=== PATIENT | female | born 1960 | race Caucasian/White ===

== ENCOUNTER 2020-04-09 10:53 | Day surgery (SDC) | payer MEDICAID ==
[~2020-04-09] VITALS: Ht 160 cm; Wt 78.2 kg
[~2020-04-09 10:53] MED LIST: HYDR-1475 PO; METO50 PO; SERT50TA12 PO; SODIUM CHLORIDE 0.9% 1,000 ML IV ONE; SODIUM CHLORIDE 0.9% 1,000 ML ONE
[2020-04-09] MEDS ORDERED: PROPOFOL 1% 20 ML VIAL IVP ONE (12:00)
[2020-04-09] MEDS ORDERED: LIDOCAINE/PF 2% 5 ML VIAL INJ ONE (12:00)
== END 2020-04-09 13:40 | disposition home or self-care (01) ==
LOC: SURGERY 10:53
PROVIDERS: ATTEND Student in an Organized Health Care Education/Training Program
DX: D12.2 Benign neoplasm of ascending colon (principal); D12.3 Benign neoplasm of transverse colon; D12.5 Benign neoplasm of sigmoid colon; I10 Essential (primary) hypertension; F32.9 Major depressive disorder, single episode, unspecified; K57.30 Diverticulosis of large intestine without perforation or abscess without bleeding; K64.8 Other hemorrhoids; Z11.59 Encounter for screening for other viral diseases; Z86.010 Personal history of colon polyps
CPT/HCPCS: 45380; 88305; C1769; J2704; J3490; J7030; U0003